=== PATIENT | female | born 1950 | race African-American/Black ===

== ENCOUNTER 2024-07-04 09:43 | Outpatient (CLI) | payer MEDICARE ==
[2024-07-04] MEDS ORDERED: Iopamidol 370 76% 100 ML VIAL ONE (09:55)
== END 2024-07-04 09:44 | disposition home or self-care (01) ==
LOC: CSHCT 09:43
PROVIDERS: ATTEND Physician Assistant Medical
DX: R15.9 Full incontinence of feces (principal); R15.2 Fecal urgency; K52.9 Noninfective gastroenteritis and colitis, unspecified; R10.9 Unspecified abdominal pain
CPT/HCPCS: 74177; 82565; Q9967